=== PATIENT | female | born 1940 | race Caucasian/White ===

== ENCOUNTER → 2017-07-23 | Outpatient (CLI) | payer OTHER ==
[~2017-07-23] MED LIST: ALPR.5 PO; AMOCLA875 PO; Amitiza24 MCG PO; CHOLESTEROL MED; CIPR500 PO; Flagyl500 MG PO; NEBI5 PO; Norco 5-325 Ta1 EACH PO; Refresh Eye Dr1 EACH BOTHEYES; SIME80CH PO; SIMV40 PO; SUCR1 PO; TYLENOL PO
[2017-07-25 11:16] LABS: HPV Genotype 16 Not Detected (NOTDET); HPV Genotype 18 Not Detected (NOTDET)
[2017-07-29 10:26] LABS: HPV High Risk Other Not Detected (NOTDET)
[2017-07-29 12:26] LABS: Source VAGINA
== END | disposition home or self-care (01) ==
LOC: LAB SHORT 17:10 → OLS 17:10
PROVIDERS: Nurse Practitioner Women's Health
DX: Z12.72 Encounter for screening for malignant neoplasm of vagina (principal)
CPT/HCPCS: 87624; G0123

== ENCOUNTER 2017-09-19 05:36 | Day surgery (SDC) | payer OTHER ==
[~2017-09-19] VITALS: Ht 152.4 cm; Wt 58.1 kg
[~2017-09-19 05:36] MED LIST changes: +ESTROGEN CREAM VAG; +HYDCOR2.5C PR
[2017-09-19 15:01] LABS: BASOPHILS ABSOLUTE AUTO 0.02 K/mm3 (0.00-0.23); BASOPHILS PERCENT AUTO 0 % (0-2); EOSINOPHILS PERCENT AUTO 0 % (0-6); Hematocrit 36.2 % (33.0-51.0); Hemoglobin 12.4 g/dL (11.5-16.0); IMMATURE GRAN ABSOLUTE AUTO 0.06 K/mm3 (0.00-0.10); IMMATURE GRAN PERCENT AUTO 0 % (0-1); LYMPHOCYTES ABSOLUTE AUTO 0.46 K/mm3 (0.84-5.20); LYMPHOCYTES PERCENT AUTO 3 % (21-46); MONOCYTES ABSOLUTE AUTO 0.47 K/mm3 (0.16-1.47); MONOCYTES PERCENT AUTO 3 % (4-13); Mean Corpuscular HGB 30.2 pg (26.0-34.0); Mean Corpuscular HGB Conc 34.3 g/dL (31.5-36.5); Mean Corpuscular Volume 88 fL (80-100); Mean Platelet Volume 8.7 fL (9.1-12.4); NEUTROPHILS ABSOLUTE AUTO 14.74 K/mm3 (1.96-9.15); NEUTROPHILS PERCENT AUTO 94 % (41-73); Platelet Count 251 K/mm3 (150-400); RDW Coefficient Variation 11.8 % (11.7-14.2); RDW Standard Deviation 38.1 fL (35.1-46.3); White Blood Cell Count 15.75 K/mm3 (4.00-11.30)
[2017-09-20 05:34] LABS: BASOPHILS ABSOLUTE AUTO 0.02 K/mm3 (0.00-0.23); BASOPHILS PERCENT AUTO 0 % (0-2); EOSINOPHILS ABSOLUTE AUTO 0.01 K/mm3 (0.00-0.68); EOSINOPHILS PERCENT AUTO 0 % (0-6); Hematocrit 33.3 % (33.0-51.0); Hemoglobin 11.3 g/dL (11.5-16.0); IMMATURE GRAN ABSOLUTE AUTO 0.04 K/mm3 (0.00-0.10); IMMATURE GRAN PERCENT AUTO 0 % (0-1); LYMPHOCYTES ABSOLUTE AUTO 1.97 K/mm3 (0.84-5.20); LYMPHOCYTES PERCENT AUTO 17 % (21-46); MONOCYTES ABSOLUTE AUTO 0.89 K/mm3 (0.16-1.47); MONOCYTES PERCENT AUTO 8 % (4-13); Mean Corpuscular HGB 30.1 pg (26.0-34.0); Mean Corpuscular HGB Conc 33.9 g/dL (31.5-36.5); Mean Corpuscular Volume 89 fL (80-100); Mean Platelet Volume 8.9 fL (9.1-12.4); NEUTROPHILS ABSOLUTE AUTO 8.72 K/mm3 (1.96-9.15); NEUTROPHILS PERCENT AUTO 75 % (41-73); Platelet Count 227 K/mm3 (150-400); RDW Coefficient Variation 11.7 % (11.7-14.2); RDW Standard Deviation 37.8 fL (35.1-46.3); Red Blood Cell Count 3.75 M/mm3 (3.80-5.20); White Blood Cell Count 11.65 K/mm3 (4.00-11.30)
[2017-09-20] MEDS ORDERED: ACET325 PO (08:58)
[2017-09-20] MEDS ORDERED: SIME80CH PO (08:59)
== END 2017-09-20 15:21 | disposition home or self-care (01) ==
LOC: ORSCMMR 05:36 → ORD 07:30 → SURS 10:47 → ORSCMMR 09-20 15:21
PROVIDERS: Obstetrics & Gynecology Gynecology
PROC: 0TJB8ZZ Inspection of Bladder, Via Natural or Artificial Opening Endoscopic (ICD-10-PCS; principal; 2017-09-19 07:30)
PROC: 0WUF0JZ Supplement Abdominal Wall with Synthetic Substitute, Open Approach (ICD-10-PCS; principal; 2017-09-19 07:30)
PROC: 0JQC0ZZ Repair Pelvic Region Subcutaneous Tissue and Fascia, Open Approach (ICD-10-PCS; principal; 2017-09-19 07:30)
PROC: 0TSD0ZZ Reposition Urethra, Open Approach (ICD-10-PCS; principal; 2017-09-19 07:30)
DX: K43.2 Incisional hernia without obstruction or gangrene (principal); N81.12 Cystocele, lateral; N81.6 Rectocele; N39.3 Stress incontinence (female) (male); I10 Essential (primary) hypertension; Z79.899 Other long term (current) drug therapy
CPT/HCPCS: 36415; 85025; C1771; C1781; J0690; J1100; J2001; J2250; J2370; J2405; J2710; J2765; J3010; J7120

== ENCOUNTER 2021-01-06 08:30 | Day surgery (SDC) | payer OTHER ==
[~2021-01-06] VITALS: Ht 152.4 cm; Wt 52.9 kg
[~2021-01-06 08:30] MED LIST changes: +ACET325 PO; +BUPR100 PO; +DESV50 PO; +Hydrocortiso453.6 G1
[2021-01-06] MEDS ORDERED: ALPR.5 PO (08:54)
[2021-01-06] MEDS ORDERED: NEBI5 PO (08:54)
== END 2021-01-06 11:12 | disposition home or self-care (01) ==
LOC: ORSCSDS 08:30 → ORD 10:45 → ORSCSDS 10:45
PROVIDERS: Surgery
PROC: 06BY0ZC Excision of Hemorrhoidal Plexus, Open Approach (ICD-10-PCS; principal; 2021-01-06 09:45)
DX: K64.3 Fourth degree hemorrhoids (principal); I10 Essential (primary) hypertension; K21.9 Gastro-esophageal reflux disease without esophagitis; Z79.899 Other long term (current) drug therapy
CPT/HCPCS: 88304; J1100; J1885; J2250; J2405; J2704; J3010

== ENCOUNTER 2021-11-14 11:07 | Day surgery (SDC) | payer OTHER ==
[~2021-11-14] VITALS: Ht 152.4 cm; Wt 47.9 kg
--- NOTE | 2021-11-14 12:49 | NUR ---
Patient confirms NPO status and agrees with scheduled surgery. Patient reports last clear liquids at 0700 today and no solid food since Saturday. History, Chart, Medications and Allergies reviewed before start of procedure. Lungs clear T/O to Auscultation. Reports taking all of colon prep with clear results. Patient States Post-Procedure ride home has been arranged with her daughter, Krupa.
--- NOTE | 2021-11-14 13:23 | NUR ---
11/14/21 1322 [facility] HISTORY, CHART, MEDICATIONS AND ALLERGIES REVIEWED BEFORE START OF PROCEDURE. PATIENT CONFIRMS NPO STATUS AND AGREES WITH SCHEDULED PROCEDURE. 3-LEAD EKG REVIEWED WITH PHYSICIAN PRIOR TO START OF PROCEDURE. MONITOR INTACT WITH CONTINUOUS PULSE OXIMETRY,CAPNOGRAPHY, 3-LEAD EKG, INTERMITTENT BP. SUPPLEMENTAL O2 TO BE TITRATED THROUGHOUT PROCEDURE TO MAINTAIN O2 SATURATION ABOVE 90%. PATIENT DETERMINED TO BE ASA APPROPRIATE FOR PROPOFOL SEDATION PRIOR TO START OF PROCEDURE BY DR. BOURGEOIS.
--- NOTE | 2021-11-14 14:39 | NUR ---
Discharge instructions reviewed with patient. Patient verbalizes understanding. Copy given to patient to take home.
--- NOTE | 2021-11-14 14:58 | NUR ---
Discharged via wheelchair to private car for ride home.
== END 2021-11-14 14:59 | disposition home or self-care (01) ==
LOC: ORSCMMR 11:07 → ORD 11:07 → ORSCMMR 11:11 → ORD 12:00
PROVIDERS: Surgery
PROC: 0DBM8ZX Excision of Descending Colon, Via Natural or Artificial Opening Endoscopic, Diagnostic (ICD-10-PCS; principal; 2021-11-14 12:45)
PROC: 0DB78ZX Excision of Stomach, Pylorus, Via Natural or Artificial Opening Endoscopic, Diagnostic (ICD-10-PCS; 2021-11-14 12:45)
DX: R19.4 Change in bowel habit (principal); D12.4 Benign neoplasm of descending colon; K21.9 Gastro-esophageal reflux disease without esophagitis; K29.71 Gastritis, unspecified, with bleeding; K92.1 Melena; K44.9 Diaphragmatic hernia without obstruction or gangrene; K22.2 Esophageal obstruction; K31.7 Polyp of stomach and duodenum; R63.4 Abnormal weight loss; I10 Essential (primary) hypertension; K57.30 Diverticulosis of large intestine without perforation or abscess without bleeding; F41.9 Anxiety disorder, unspecified; E78.5 Hyperlipidemia, unspecified; Z79.899 Other long term (current) drug therapy
CPT/HCPCS: 88305; 88342; J2250; J2704; J7120

== ENCOUNTER 2022-08-02 06:46 | Day surgery (SDC) | payer OTHER ==
[~2022-08-02] VITALS: Ht 152.4 cm; Wt 50.6 kg
[2022-08-02] MEDS ORDERED: PRILOSEC OTC20 MG PO (07:28)
[2022-08-02 08:57] VITALS: BP 149/98
--- NOTE | 2022-08-02 09:24 | NUR ---
08/02/22 0924 Johnnie Sharma PT INSTRUCTED TO MONITOR BLOOD PRESSURE AT HOME AND FOLLOW UP WITH PCP REGARDING HYPERTENSION.
== END 2022-08-02 09:20 | disposition home or self-care (01) ==
LOC: ORSCSDS 06:46
PROVIDERS: Ophthalmology
PROC: 08DJ3ZZ Extraction of Right Lens, Percutaneous Approach (ICD-10-PCS; principal; 2022-08-02 08:30)
DX: H25.11 Age-related nuclear cataract, right eye (principal); I10 Essential (primary) hypertension; K21.9 Gastro-esophageal reflux disease without esophagitis; F41.9 Anxiety disorder, unspecified; E78.5 Hyperlipidemia, unspecified; Z79.899 Other long term (current) drug therapy
CPT/HCPCS: J2001; J2250; J3010; J3301; J7040; V2632

== ENCOUNTER 2022-08-09 06:43 | Day surgery (SDC) | payer OTHER ==
[~2022-08-09] VITALS: Ht 152.4 cm; Wt 50.4 kg
[~2022-08-09 06:43] MED LIST changes: +PRILOSEC OTC20 MG PO
--- NOTE | 2022-08-09 07:29 | NUR ---
08/09/22 0729 Summer Ahn DAUGHTER MASHA AT BEDSIDE. CALL LIGHT WITHIN REACH. TETRACAINE INSTILLED IN LEFT EYE AT 0713 AND PLEDGETT IN AT 0715.
[2022-08-09 08:55] VITALS: BP 155/65
--- NOTE | 2022-08-09 08:58 | NUR ---
08/09/22 0858 SHARON OLIVIA, STUDENT, ASSESSING WITH CARE.
== END 2022-08-09 09:13 | disposition home or self-care (01) ==
LOC: ORSCSDS 06:43
PROVIDERS: Ophthalmology
PROC: 08DK3ZZ Extraction of Left Lens, Percutaneous Approach (ICD-10-PCS; principal; 2022-08-09 08:30)
DX: H25.12 Age-related nuclear cataract, left eye (principal); Z96.1 Presence of intraocular lens; I10 Essential (primary) hypertension; K21.9 Gastro-esophageal reflux disease without esophagitis; F41.9 Anxiety disorder, unspecified; Z79.899 Other long term (current) drug therapy
CPT/HCPCS: J2250; J3010; J3301; J7040; V2632

== ENCOUNTER → 2024-11-04 | Outpatient (CLI) | payer OTHER, MEDICARE ==
[2024-11-04 12:16] LABS: BASOPHILS ABSOLUTE AUTO 0.03 K/mm3 (0.00-0.23); BASOPHILS PERCENT AUTO 0 % (0-2); EOSINOPHILS ABSOLUTE AUTO 0.02 K/mm3 (0.00-0.68); EOSINOPHILS PERCENT AUTO 0 % (0-6); Hematocrit 40.8 % (33.0-51.0); Hemoglobin 13.6 g/dL (11.5-16.0); IMMATURE GRAN ABSOLUTE AUTO 0.03 K/mm3 (0.00-0.10); IMMATURE GRAN PERCENT AUTO 0 % (0-1); LYMPHOCYTES ABSOLUTE AUTO 1.20 K/mm3 (0.84-5.20); LYMPHOCYTES PERCENT AUTO 13 % (21-46); MONOCYTES ABSOLUTE AUTO 0.79 K/mm3 (0.16-1.47); MONOCYTES PERCENT AUTO 9 % (4-13); Mean Corpuscular HGB Conc 33.3 g/dL (31.5-36.5); Mean Corpuscular Volume 90 fL (80-100); NEUTROPHILS ABSOLUTE AUTO 7.16 K/mm3 (1.96-9.15); NEUTROPHILS PERCENT AUTO 78 % (41-73); NRBC ABSOLUTE 0.00 K/mm3 (0.00-0.02); NRBC Auto 0.0 /100 WBC (0.0-0.2); Platelet Count 250 K/mm3 (150-400); RDW Coefficient Variation 12.2 % (11.7-14.2); RDW Standard Deviation 40.1 fL (35.1-46.3)
[2024-11-04 12:31] LABS: Alanine Aminotransfer (ALT/SGP 22.0 U/L (12-78); Albumin, Blood 4.1 g/dL (3.4-5.0); Albumin/Globulin Ratio 1.4 (0.8-1.8); Anion Gap 11.0 mmol/L (3-11); Aspartate Aminotrans (AST/SGOT 19.0 U/L (12-37); Bilirubin, Total 0.7 mg/dL (0.1-1.0); Blood Urea Nitrogen 12.0 mg/dL (8-24); CO2, Blood 30.0 mmol/L (21-32); Calcium, Blood 9.5 mg/dL (8.5-10.1); Chloride, Blood 102.0 mmol/L (98-108); Creatinine, Blood 0.74 mg/dL (0.40-1.00); Globulin, Blood 3.0 g/dL (2.2-4.0); Glucose, Blood 110.0 mg/dL (70-99); Potassium, Blood 4.0 mmol/L (3.5-5.5); Sodium, Blood 139.0 mmol/L (136-145); Total Protein, Blood 7.1 g/dL (6.4-8.2)
== END | disposition home or self-care (01) ==
LOC: LAB 12:09 → LAB SHORT 12:09
PROVIDERS: Chiropractor
DX: R07.9 Chest pain, unspecified (principal)
CPT/HCPCS: 80053; 83880; 84484; 85025; 85379

== ENCOUNTER → 2024-12-17 | Outpatient (CLI) | payer OTHER ==
[2024-12-18 11:15] LABS: Campylobacter Sp Not Detected (NOT DETECT); E. Coli O157 Not Detected (NOT DETECT); Enteroaggregative E. coli-EAEC Not Detected (NOT DETECT); Enteropathogenic E. coli-EPEC Not Detected (NOT DETECT); Enterotoxigenic E. coli-ETEC Not Detected (NOT DETECT); Salmonella Sp Not Detected (NOT DETECT); Shiga Toxin-prod E. coli-STEC Not Detected (NOT DETECT); Shigella/Enteroin E. coli-EIEC Not Detected (NOT DETECT); Vibrio Sp Not Detected (NOT DETECT)
[2024-12-21 16:07] LABS: CALPROTECTIN,FECAL 212 ug/g (<=49)
== END ==
LOC: LAB SHORT 16:00 → LAB 16:00
PROVIDERS: Surgery
DX: K52.9 Noninfective gastroenteritis and colitis, unspecified (principal); R63.4 Abnormal weight loss
CPT/HCPCS: 83993; 87507

== ENCOUNTER → 2025-01-25 | Outpatient (CLI) | payer OTHER ==
[2025-01-29 18:31] LABS: PANCREATIC ELASTASE,FECAL 95 ug/g (>=100)
== END | disposition home or self-care (01) ==
LOC: LAB 08:23 → LAB SHORT 08:23
PROVIDERS: Physician Assistant
DX: K52.9 Noninfective gastroenteritis and colitis, unspecified (principal)
CPT/HCPCS: 82653

== ENCOUNTER 2025-02-12 06:02 | Day surgery (SDC) | payer OTHER ==
[~2025-02-12] VITALS: Ht 152.4 cm; Wt 44.2 kg
[2025-02-12] VITALS (10 sets, daily range): BP systolic 94–204; BP diastolic 57–103
[~2025-02-12 06:02] MED LIST changes: +Carvedilol12.5 MG PO; +ESCI10 PO; +OLME20 PO; +TRAZ50 PO
[2025-02-12] MEDS ORDERED: NS 500 ML IV ONE (07:22)
[2025-02-12] MEDS ORDERED: Heparin Sodium 1000 Units/ML 10ML MDV ONE (07:22)
[2025-02-12] MEDS ORDERED: NS 1,000 ML IV ONE ×2 (07:22→08:14)
[2025-02-12] MEDS ORDERED: Aspir 8181 MG PO (07:26)
[2025-02-12] MEDS ORDERED: Midazolam HCl 1MG / ML 2ML Vial ONE (08:14)
[2025-02-12] MEDS ORDERED: FentaNYL Citrate 50 MCG/ML 2 ML Injection ONE (08:14)
[2025-02-12] MEDS ORDERED: Nitroglycerin 2 MG/20 ML BTL ONE (08:31)
[2025-02-12] MEDS ORDERED: Verapamil HCL 2.5 MG/ML 2ML Injection ONE (08:31)
--- NOTE | 2025-02-12 10:00 | NUR ---
PATIENT ARRIVED BACK TO REOVERY ROOM SITTING UPRIGHT IN RECLINER. RIGHT RADIAL SITE TENDER, BUT SOFT, C/D/I. PATIENT AMBULATING TO RESTROOM WITH ASSISTANCE. VSS ON RA.
--- NOTE | 2025-02-12 10:21 | NUR ---
PATIENT SITTING UPRIGHT IN RECLINER, COMPLAINING OF RIGHT FOREARM PAIN. RIGHT RADIAL TR BAND C/D/I SOFT/TENDER, NO EVIDENCE OF BLEEDING. 650 MG PO TYLENOL GIVEN. WILL CONTINUE TO MONITOR. VSS ON RA.
[2025-02-12] MEDS ORDERED: CLOP75 PO (10:25)
--- NOTE | 2025-02-12 10:40 | NUR ---
PATIENT COMPLAINING OF TINGLING IN FINGERS IN RIGHT HAND. INITIAL 2 CC OF AIR REMOVED FROM RIGHT RADIAL TR BAND. SITE C/D/I SOFT/TENDER. VSS ON RA.
--- NOTE | 2025-02-12 11:20 | NUR ---
ALL AIR REMOVED FROM RIGHT RADIAL TR BAND. SITE C.D.I SOFT/TENDER AT INSERTION SITE. PATIENT TOLERATING PO INTAKE WELL. VSS ON RA.
--- NOTE | 2025-02-12 11:49 | NUR ---
DISCHARGE INSTRUCTIONS REVIEWED WITH PATIENT AND DAUGHTER, ALL QUESTIONS WERE ANSWERED. NEW PRESCRIPTION CALLED INTO PATIENTS PREFERRED PHARMACY. VSS ON RA. RIGHT RADIAL TR BAND SITE SOFT/TENDER, NO EVIDENCE OF BLEEDING.
--- NOTE | 2025-02-12 12:25 | NUR ---
small hematoma noted to r wrist. manual pressure held for 5 minutes. hematoma resolved. cloth dot placed by kathleen north. site soft and mildly tender per pt. no further bleeding/hematoma noted.
--- NOTE | 2025-02-12 12:50 | NUR ---
PIV REMOVED WITHOUT DIFFICULTY, CATHETER INTACT.
--- NOTE | 2025-02-12 13:01 | NUR ---
PATIENT DISCHARGED HOME AT THIS TIME. ALL DISCHARGE INSTRUCTIONS AND PATIENT BELONGINGS LEFT WITH PATIENT. RIGHT RADIAL SITE SOFT/TENDER, WITH BRUISING NOTED. NO SIGNS OF HEMATOMA OR BLEEDING. TR BAND REMOVED AND CLOTH DOT AND ARM BOARD IN PLACE. VSS ON RA. APTEINT AMBULATING TO RESTROOM WITHOUT DIFFICULTY. PATIENT WHEELED TO HOSPITAL ENTRANCE AND DAUGHTER ABLE TO PROVIDE TRANSPORTATION HOME.
== END 2025-02-12 13:11 | disposition home or self-care (01) ==
LOC: ORSCMMR 06:02 → MHTC 06:02
DX: K55.1 Chronic vascular disorders of intestine (principal); K52.9 Noninfective gastroenteritis and colitis, unspecified; K21.9 Gastro-esophageal reflux disease without esophagitis; I10 Essential (primary) hypertension; E78.5 Hyperlipidemia, unspecified; M81.0 Age-related osteoporosis without current pathological fracture; Z79.899 Other long term (current) drug therapy; Z88.8 Allergy status to other drugs, medicaments and biological substances; Z90.49 Acquired absence of other specified parts of digestive tract; Z90.710 Acquired absence of both cervix and uterus
CPT/HCPCS: 76937; 99152; 99153; A9270; C1769; C1876; C1887; C1894; J1644; J2250; J3010; J7030; J7050; Q9967